=== PATIENT | male | born 1960 | race Caucasian/White ===

== ENCOUNTER 2018-05-27 12:14 | Day surgery (SDC) | payer BC ==
[2018-05-26 12:49] VITALS: BMI 27.0
[~2018-05-27 12:14] MED LIST: LACTATED RINGERS 1,000 ML IV SCH
[2018-05-27 12:34] VITALS: TEMP 98.3
[2018-05-27] MEDS ORDERED: LIDOCAINE 1% 20 ML VIAL (10MG/ML) FOR IV START INTRADERMA ONE (12:43)
[2018-05-27] MEDS ORDERED: LIDOCAINE 1% INJ 10MG/ML (20 ML MDV) ONE (12:56)
[2018-05-27] MEDS ORDERED: PROPOFOL 10 MG/ML 20 ML VIAL IV ONE (12:56)
[2018-05-27] MEDS ORDERED: GLUCAGON 1 MG/ML VIAL ONE (12:56)
--- NOTE | 2018-05-27 14:07 | P.PCN ---
Date of Procedure: 05/27/18 Description of Procedure: BRIEF HISTORY: Patient is a 57-year-old pleasant male scheduled for an elective colonoscopy as a part of colorectal cancer screening. The patient reports pressure colonoscopy approximately 5-7 years ago at which time he was being investigated for hemorrhoidal bleed. The patient reports that that case was aborted due to a spastic colon. He denies any family history of colon cancer, hematochezia, melena or change in bowel habits. Colonoscopy was attempted yesterday but aborted due to a poor prep. The patient was discharged home to take more prep and is seen again for repeat colonoscopy. PROCEDURE PERFORMED: Colonoscopy. PREOPERATIVE DIAGNOSIS: Screening colonoscopy, history of colonic polyp ESTIMATED BLOOD LOSS: Minimal. IV sedation per Anesthesia. PROCEDURE: After informed consent was obtained, the patient, was brought into the endoscopy unit. IV sedation was administered by Anesthesia under continuous monitoring. Digital rectal examination was normal. Initially the Olympus CF-190 flexible video colonoscope was then inserted in the rectum, gradually advanced into the cecum which was technically difficult due to a fair prep and a spastic colon. Careful examination was performed as the scope was gradually being withdrawn. Ileocecal valve and the appendiceal orifice were visualized and appeared normal. Prep was fair, with solid stool noted in the left colon with lavage and mechanical manipulation used to visualize tissue. Mucosa of the cecum, ascending colon, transverse colon, descending colon, sigmoid colon, and rectum appeared normal. Retroflexion was performed in the rectum and no lesions were seen, mild internal hemorrhoids noted. The patient tolerated the procedure well. IMPRESSION: Normal-appearing colon from rectum to cecum. Site of previous polypectomy noted. Mild internal hemorrhoids. Fair prep. RECOMMENDATIONS: Findings of this examination were discussed with the patient and his family. Okay for diet. Repeat colonoscopy in 3 years due to fair prep and history of colon polyps. Recommend 2 day prep at that time.
[2018-05-27 14:17] VITALS: BP 119/79; PULSE 58; RESP 16
[2018-05-27 14:33] LABS: Glucose,Whole Blood 159 mg/dL (75-99)
== END 2018-05-27 14:32 | disposition home or self-care (01) ==
LOC: ORWHC2ENDO 12:14
PROVIDERS: ATTEND Internal Medicine
DX: Z12.11 Encounter for screening for malignant neoplasm of colon (principal); K64.8 Other hemorrhoids; K58.9 Irritable bowel syndrome, unspecified; Z86.010 Personal history of colon polyps; E11.9 Type 2 diabetes mellitus without complications; Z79.84 Long term (current) use of oral hypoglycemic drugs
CPT/HCPCS: J1610; J2001; J2704; G0105; 45378